=== PATIENT | female | born 1950 | race Caucasian/White ===

== ENCOUNTER → 2016-08-14 | Outpatient (CLI) | payer MEDICARE ==
--- NOTE | 2016-08-14 10:15 | US ---
EXAMINATION: Retroperitoneal ultrasound and renal arterial duplex HISTORY: Hypertension COMPARISON: None TECHNIQUE: Grayscale, color Doppler, and spectral Doppler images obtained. FINDINGS: The right kidney measures 12.1 cm [id number] without evidence of hydronephrosis. The guadalupe al cortical echotexture appears mildly increased. No renal masses or perinephric fluid collections. The left kidney is surgically absent. The urinary bladder appears normal. Mild atheromatous disease is noted within the aorta which is normal in caliber. Velocity within the mid aorta is 77 cm/s. Velocities within the origin, proximal, mid, and distal right renal arteries a re 191, 240, 94, and 129 cm/s respectively. No elevated resistive indices noted within the arcuate. The right RAR is 3.1. IMPRESSION: 1. Mildly increased velocities within the right renal artery with an RAR of 3.1.
--- NOTE | 2016-08-14 10:15 | US ---
EXAMINATION: Retroperitoneal ultrasound and renal arterial duplex HISTORY: Hypertension COMPARISON: None TECHNIQUE: Grayscale, color Doppler, and spectral Doppler images obtained. FINDINGS: The right kidney measures 12.1 cm [id number] without evidence of hydronephrosis. The guadalupe al cortical echotexture appears mildly increased. No renal masses or perinephric fluid collections. The left kidney is surgically absent. The urinary bladder appears normal. Mild atheromatous disease is noted within the aorta which is normal in caliber. Velocity within the mid aorta is 77 cm/s. Velocities within the origin, proximal, mid, and distal right renal arteries a re 191, 240, 94, and 129 cm/s respectively. No elevated resistive indices noted within the arcuate. The right RAR is 3.1. IMPRESSION: 1. Mildly increased velocities within the right renal artery with an RAR of 3.1.
== END ==
LOC: MW.US 08:03
PROVIDERS: ATTEND Internal Medicine
DX: I10 Essential (primary) hypertension (principal)
CPT/HCPCS: 76770; 76770-26; 93975; 93975-26